=== PATIENT | male | born 1940 | race African-American/Black ===

== ENCOUNTER 2024-04-08 17:23 | Inpatient (IN) | payer MEDICARE, MEDICAID ==
[~2024-04-08] VITALS: Ht 172.7 cm; Wt 92.1 kg
[2024-04-08 17:50] VITALS: BP 118/50; PULSE 63; RESP 18; TEMP 36.5; O2SAT 100
[2024-04-08] MEDS ORDERED: GUAIFENESIN 200MG/10ML SUGAR FREE UDC PO PRN (18:15)
[2024-04-08] MEDS ORDERED: ONDANSETRON HCL 4MG/2ML INJ IV PRN (18:15)
[2024-04-08 20:29] VITALS: BP 141/62; PULSE 68; RESP 19; TEMP 36.8; O2SAT 97
[2024-04-08] MEDS: DOCUSATE SODIUM 250MG CAPSULE PO SCH (20:31)
[2024-04-08] MEDS: CEPHALEXIN 250MG CAPSULE PO SCH (23:44)
[2024-04-08 23:54] VITALS: BP 141/62; PULSE 68; RESP 19; TEMP 36.2
[2024-04-09 06:39] LABS: BASOPHILS % 0.3 % (0.0-2.0); EOSINOPHILS % 3.2 % (0.0-5.0); HEMOGLOBIN. 12.2 g/dL (14.0-18.0); LYMPHOCYTES % 39.4 % (20.0-50.0); MEAN CORPUSCULAR HEMOGLOBIN 27.9 pg (28.0-32.0); MEAN CORPUSCULAR VOLUME 84.6 fL (80.0-94.0); MONOCYTES % 10.3 % (2.0-8.0); NEUTROPHILS % 46.8 % (40.0-76.0); PLATELET 96 x1000/uL (130-400); RED BLOOD CELL COUNT 4.37 mill/uL (4.7-6.1); RED CELL DISTRIBUTION WIDTH 16.9 % (11.6-14.6); WHITE BLOOD COUNT 4.9 x1000/uL (4.5-11.0)
[2024-04-09 06:43] LABS: CHLORIDE 106 mEq/L (98-107); POTASSIUM 4.3 mEq/L (3.5-5.1); SODIUM 141 mEq/L (136-145)
[2024-04-09 06:47] LABS: CALCIUM 9.3 mg/dL (8.7-10.4); CARBON DIOXIDE 27 mEq/L (21-32)
[2024-04-09 06:52] LABS: CREATININE 0.8 mg/dL (0.6-1.3); GLUCOSE 93 mg/dL (70-105); UREA NITROGEN BLOOD 21 mg/dL (9-23)
[2024-04-09 06:54] LABS: ALANINE AMINOTRANSFERASE 16 IU/L (10-49); ALBUMIN 3.4 g/dL (3.2-4.8); ASPARTATE AMINOTRANSFERASE 33 IU/L (<34); PREALBUMIN 7.4 mg/dl (10.0-40.0)
[2024-04-09 06:55] LABS: BILIRUBIN TOTAL 0.6 mg/dL (0.1-1.0); PROTEIN TOTAL 6.2 g/dL (6.0-8.3)
[2024-04-09 08:00] VITALS: BP 103/67; PULSE 61; RESP 18; TEMP 36.3; O2SAT 98
[2024-04-09] MEDS: LACTULOSE 20G/30ML UDC PO PRN (08:41)
[2024-04-09] MEDS: CEPHALEXIN 250MG CAPSULE PO SCH (12:16)
[2024-04-09 13:31] LABS: CLARITY URINE CLEAR (CLEAR); COLOR URINE YELLOW (YELLOW); GLUCOSE URINE NEGATIVE (NEGATIVE); KETONES URINE NEGATIVE (NEGATIVE); LEUKOCYTE ESTERASE URINE NEGATIVE (NEGATIVE); NITRITE URINE NEGATIVE (NEGATIVE); OCCULT BLOOD URINE TRACE (NEGATIVE); PH URINE 6.5 (4.5-8.0); PROTEIN URINE NEGATIVE (NEGATIVE); SPECIFIC GRAVITY URINE 1.016 (1.005-1.030)
[2024-04-09 14:19] LABS: BACTERIA URINE FEW; SQUAMOUS EPITHELIAL CELL URINE NONE SEEN /lpf (RARE/1+); WBC URINE 0-2 /hpf (0-2); YEAST URINE NONE SEEN
[2024-04-09 20:28] VITALS: BP 98/52; PULSE 79; RESP 19; TEMP 36.1; O2SAT 98
[2024-04-10 08:00] VITALS: BP 95/51; PULSE 60; TEMP 35.6; O2SAT 97
[2024-04-10 08:56] LABS: BASOPHILS % 0.3 % (0.0-2.0); EOSINOPHILS % 3.1 % (0.0-5.0); HEMATOCRIT. 39.9 % (42.0-52.0); HEMOGLOBIN. 12.6 g/dL (14.0-18.0); LYMPHOCYTES % 32.7 % (20.0-50.0); MEAN CORPUSCULAR HEMOGLOBIN 27.2 pg (28.0-32.0); MEAN CORPUSCULAR HGB CONC 31.6 g/dL (31.0-37.0); MEAN CORPUSCULAR VOLUME 86.1 fL (80.0-94.0); MEAN PLATELET VOLUME 8.8 fl (7.4-10.4); MONOCYTES % 9.4 % (2.0-8.0); NEUTROPHILS % 54.5 % (40.0-76.0); PLATELET 94 x1000/uL (130-400); RED BLOOD CELL COUNT 4.64 mill/uL (4.7-6.1); RED CELL DISTRIBUTION WIDTH 16.8 % (11.6-14.6); WHITE BLOOD COUNT 5.2 x1000/uL (4.5-11.0)
[2024-04-10 09:09] LABS: CHLORIDE 105 mEq/L (98-107); POTASSIUM 4.5 mEq/L (3.5-5.1); SODIUM 140 mEq/L (136-145)
[2024-04-10 09:10] LABS: CALCIUM 9.7 mg/dL (8.7-10.4); CARBON DIOXIDE 28 mEq/L (21-32)
[2024-04-10 09:11] LABS: AMMONIA < 17 uMol/L (<32)
[2024-04-10 09:14] LABS: IRON 64 ug/dL (65-175); THYROID STIMULATING HORMONE 2.71 uIU/mL (0.55-4.78)
[2024-04-10 09:15] LABS: CREATININE 0.9 mg/dL (0.6-1.3); GLUCOSE 103 mg/dL (70-105); PROTEIN TOTAL 6.6 g/dL (6.0-8.3); UREA NITROGEN BLOOD 19 mg/dL (9-23)
[2024-04-10 09:17] LABS: ALANINE AMINOTRANSFERASE 15 IU/L (10-49); ALBUMIN 3.6 g/dL (3.2-4.8); ASPARTATE AMINOTRANSFERASE 28 IU/L (<34); BILIRUBIN TOTAL 0.7 mg/dL (0.1-1.0); CREATINE KINASE 249 IU/L (46-171); TOTAL IRON BINDING CAPACITY 111 ug/dl (250-425)
[2024-04-10 09:28] LABS: FERRITIN 53 ng/mL (22-322)
[2024-04-10 09:29] LABS: FOLIC ACID (FOLATE) SERUM 10.56 ng/mL (>5.38); VITAMIN B12 SERUM 263 pg/mL (211-911)
[2024-04-10] MEDS: THIAMINE HCL 100MG TABLET PO SCH (09:53)
[2024-04-10] MEDS: FOLIC ACID 1MG TABLET PO SCH (09:54)
[2024-04-10] MEDS: SODIUM CHLORIDE 0.9% 500 ML IV SCH (15:42)
[2024-04-10] MEDS: CYANOCOBALAMIN 1000MCG/ML VIAL IM SCH (17:29)
[2024-04-10 20:00] VITALS: BP 117/63; PULSE 62; RESP 19; TEMP 36.7; O2SAT 98
[2024-04-10] MEDS: ZOLPIDEM TARTRATE 5MG TABLET PO PRN (20:17)
[2024-04-11 08:00] VITALS: BP 124/68; PULSE 60; RESP 18; TEMP 35.6; O2SAT 98
[2024-04-11] MEDS: ERGOCALCIFEROL 50000UNITS CAPSULE PO SCH (12:43)
[2024-04-11 20:00] VITALS: BP 118/70; PULSE 60; RESP 18; TEMP 37.6; O2SAT 99
[2024-04-12 08:00] VITALS: BP 107/65; PULSE 75; RESP 18; TEMP 35.9; O2SAT 100
[2024-04-12] MEDS: ACETAMINOPHEN 325MG TABLET PO PRN (12:55)
[2024-04-12 20:00] VITALS: BP 125/80; PULSE 60; RESP 19; TEMP 36.7; O2SAT 99
[2024-04-13 08:00] VITALS: BP 140/87; PULSE 61; RESP 19; TEMP 35.6; O2SAT 98
[2024-04-13 20:00] VITALS: BP 109/68; PULSE 60; RESP 18; TEMP 36.3; O2SAT 97
[2024-04-14 08:00] VITALS: BP 120/78; PULSE 60; RESP 20; TEMP 36.2; O2SAT 100
[2024-04-14 19:38] VITALS: BP 142/78; PULSE 84; RESP 20; TEMP 36.7; O2SAT 99
[2024-04-15 08:00] VITALS: BP 127/55; PULSE 69; RESP 19; TEMP 36.5; O2SAT 98
[2024-04-15 20:00] VITALS: BP 101/62; PULSE 63; RESP 18; TEMP 36.4; O2SAT 99
[2024-04-16 08:00] VITALS: BP 100/69; PULSE 63; RESP 18; TEMP 36.2
[2024-04-16 20:07] VITALS: BP 145/66; PULSE 84; RESP 19; TEMP 36.7
[2024-04-17 08:00] VITALS: BP 109/68; PULSE 75; RESP 19; TEMP 36.3; O2SAT 95
[2024-04-17 20:00] VITALS: BP 104/67; PULSE 60; RESP 17; TEMP 36.3; O2SAT 96
[2024-04-18 08:00] VITALS: BP 107/71; PULSE 79; RESP 18; TEMP 36.2; O2SAT 95
[2024-04-18 11:40] VITALS: BP 107/71; PULSE 79; TEMP 97.2; O2SAT 95
[2024-04-18] MEDS ORDERED: DOCU250C14 PO (12:33)
[2024-04-18] MEDS ORDERED: CYAN100096 MT (12:33)
[2024-04-18] MEDS ORDERED: THIA100T72 PO (12:33)
[2024-04-18] MEDS ORDERED: FOLI-43 PO (12:33)
[2024-04-18] MEDS ORDERED: ERGO1250 PO (12:35)
[2024-04-23] MEDS ORDERED: CYANOCOBALAMIN 1000MCG/ML VIAL IM SCH (09:00)
== END 2024-04-18 13:14 | disposition home or self-care (01) | DRG 71 ==
PROVIDERS: ADMIT Physical Medicine & Rehabilitation Spinal Cord Injury Medicine; ATTEND Internal Medicine
DX: G93.41 Metabolic encephalopathy (principal); F03.93 Unspecified dementia, unspecified severity, with mood disturbance; F03.94 Unspecified dementia, unspecified severity, with anxiety; F33.1 Major depressive disorder, recurrent, moderate; D69.6 Thrombocytopenia, unspecified; D64.9 Anemia, unspecified; G62.9 Polyneuropathy, unspecified; R73.9 Hyperglycemia, unspecified; R53.81 Other malaise; E53.8 Deficiency of other specified B group vitamins; E55.9 Vitamin D deficiency, unspecified; I10 Essential (primary) hypertension; S92.491A Other fracture of right great toe, initial encounter for closed fracture; W18.39XA Other fall on same level, initial encounter; E66.811 Obesity, class 1; F41.1 Generalized anxiety disorder; G47.00 Insomnia, unspecified; K59.00 Constipation, unspecified; R26.2 Difficulty in walking, not elsewhere classified; M79.674 Pain in right toe(s); Z60.2 Problems related to living alone; Y93.89 Activity, other specified; Z87.891 Personal history of nicotine dependence; Z91.81 History of falling; Y92.89 Other specified places as the place of occurrence of the external cause; Y99.8 Other external cause status; Z68.30 Body mass index [BMI] 30.0-30.9, adult
CPT/HCPCS: 36415; 80053; 81003; 82140; 82306; 82550; 82607; 82728; 82746; 83036; 83540; 83550; 84134; 84443; 85025; 92523; 92610; 97110; 97112; 97116; 97162; 97166; 97530; 97535; C1893; J3420